=== PATIENT | female | born 1945 | race Caucasian/White ===

== ENCOUNTER 2018-04-24 20:06 | Emergency (ER) | payer MEDICARE ==
--- NOTE | 2018-04-24 20:37 | ED Physician Chart ---
ED Chief Complaint/HPI - Patient Information Date Seen:: 04/24/18 Time Seen:: 20:20 Chief Complaint:: cp History of Present Illness:: 72 yr old female with hx of htn with lt sided cp for 6 hours no trauma no dizzines or vomiting or fever or cough pain sharp mod to severe not assoc with sob but has lt hand pains no previous hx of same Allergies:: Allergies Allergy/AdvReac Type Severity Reaction Status Date / Time No Known Allergies Allergy Verified 04/24/18 20:19 Vitals:: Vital Signs - 8 hr 04/24/18 20:08 Temp 98.1 F HR 82 RR 18 BP 123/60 O2 Sat % 98 ED Review of Systems - Review of Systems General/Constitutional: No fever Skin: No skin lesions Head: No headache Eyes: No loss of vision ENT: No earache Cardio Vascular: Chest pain Pulmonary: No SOB, No cough GI: No vomiting G/U: No dysuria Musculoskeletal: No bone or joint pain Psychiatric: No prior psych history, No depression Hematopoietic: No bruising Allergic/Immuno: No urticaria Neurological: No syncope, No focal symptoms, No headache ED Past Medical History - Past Medical History Past Medical History: HTN Family History: None Social History: Non Smoker Surgical History: None Psychiatricy History: None Medication: Reviewed (takes baby aspirin losartan hctz```````) Family Medical History - Family Member Mother History Unknown: Yes Ethnicity: ED Physical Exam - Physical Examination Eyes: Lids, conjuctiva normal Skin: Nl inspection ENMT: External ears, nose nl Neck: Nontender Respiratory: Nl effort/Exclusion Other Respiratory comments:: tenderness to palpation lt chest wall Cardio Vascular: RRR, No murmur, gallop, rubs : No CVA tenderness Extremities: No tenderness or effusion Neuro/Psych: Normal motor strength Misc: Normal back ED Labs/Radiology/EKG Results - EKG Interpretations EKG Time:: 20:17 Rate & Rhythm: NSR @86 OLD AWMI ED Assessment - Assessment General Assessment: chest pain ED Septic Shock - . Is Septic Shock (SBP<90, OR Lactate>4 mmol\L) present?: No - <6hrs of presentation: Vital Signs: Vital Signs - 8 hr 04/24/18 20:08 Temp 98.1 F HR 82 RR 18 BP 123/60 O2 Sat % 98 ED Reassessment (Disposition) - Reassessment Reassessment Condition:: Improved - Diagnosis Diagnosis:: chest pain R/O CHEST WALL PAIN NL TROP BNP EKG OLD AWMI PT IMPROVED - Patient Disposition Discharge/Transfer:: Home Condition at Disposition:: Stable ED Discharge Plan - Patient Disposition Instructions: Chest Wall Pain, [id number] Additional Instructions: MAKE A FOLLOW UP WITH PRIMARY MEDICAL DOCTOR ROLAN, GO BACK TO EMERGENCY ROOM IF SYMPTOMS WORSEN.
[2018-04-24 20:59] LABS: URINE MICROSCOPIC INDICATED? YES; URINE SOURCE CLEAN C
[2018-04-24 21:00] LABS: % BASOPHILS 0.6 % (0.0-2.0); % EOSINOPHILS 0.1 % (0.0-5.0); % LYMPHOCYTES 24.6 % (20.0-50.0); % MONOCYTES 8.2 % (2.0-10.0); % NEUTROPHILS 66.5 % (40.0-80.0); BASOPHILE ABSOLUTE 0.1 Th/cumm (0-0.2); LYMPHOCYTE ABSOLUTE 2.1 Th/cmm (1.5-3.0); MEAN CELL VOLUME 88.7 fl (81-100); MEAN CORPUSCULAR HEMOGLOBIN 30.4 pg (27.0-31.0); MEAN CORPUSCULAR HGB CONC 34.3 pg (28.0-36.0); MEAN PLATELET VOLUME 7.9 fl; MONOCYTE ABSOLUTE 0.7 Th/cmm (0.3-1.0); NEUTROPHILE ABSOLUTE 5.5 Th/cmm (1.8-8.0); PLATELET COUNT 200 Th/cmm (150-400); RED BLOOD COUNT 3.94 Mil/cmm (3.80-5.20); RED CELL DISTRIBUTION WIDTH 11.9 % (11.5-20.0); WHITE BLOOD COUNT 8.4 Th/cmm (4.8-10.8)
[2018-04-24 21:00] LABS: URINE BILIRUBIN NEGATIVE (NEGATIVE); URINE BLOOD TRACE (NEGATIVE); URINE GLUCOSE (UA) NEGATIVE (NEGATIVE); URINE KETONE NEGATIVE (NEGATIVE); URINE LEUKOCYTE ESTERASE NEGATIVE (NEGATIVE); URINE NITRATE NEGATIVE (NEGATIVE); URINE PROTEIN NEGATIVE (NEGATIVE); URINE UROBILINOGEN 0.2 E.U./dL (0.2 - 1.0)
[2018-04-24 21:03] LABS: URINE CLARITY CLEAR (CLEAR); URINE COLOR YELLOW
[2018-04-24 21:04] LABS: URINE BACTERIA NONE SEEN /hpf (NONE SEEN); URINE EPITHELIAL CELLS NONE SEEN /lpf (FEW); URINE WBC NONE SEEN /hpf (0-5)
[2018-04-24] MEDS ORDERED: NITROGLYCERIN OINT 2% 1 INCH PACKET TP ONE (21:09)
[2018-04-24 21:14] LABS: ALB/GLOB RATIO 1.4 (1.0-1.8); ALBUMIN 3.9 gm/dL (3.7-5.3); ALKALINE PHOSPHATASE 95 U/L (34-104); BILIRUBIN,TOTAL 0.4 mg/dL (0.3-1.0); BUN - UREA NITROGEN 19 mg/dL (7-25); CALCIUM SERUM 9.5 mg/dL (8.6-10.3); CARBON DIOXIDE 26.1 mEq/L (21.0-31.0); CHLORIDE 103 mEq/L (98-107); CREATININE - SERUM 0.7 mg/dL (0.6-1.2); CREATININE KINASE 96 U/L (30-223); GLUCOSE 129 mg/dL (70-105); POTASSIUM SERUM 3.1 mEq/L (3.5-5.1); SGOT 21 U/L (13-39); SGPT/ALT 20 U/L (7-52); SODIUM SERUM 138 mEq/L (136-145); TOTAL PROTEIN,SERUM 6.7 gm/dL (6.0-8.3)
[2018-04-24] MEDS: NITROGLYCERIN OINT 2% 1 INCH PACKET TP ONE (21:20)
[2018-04-24] MEDS ORDERED: Potassium Chloride 20 mEq ER Tab PO ONE (21:52)
[2018-04-24] MEDS: Potassium Chloride 20 mEq ER Tab PO ONE (21:54)
--- NOTE | 2018-04-25 08:23 | Diagnostic Imaging Report ---
CHEST X-RAY: AP view INDICATION: Shortness of breath COMPARISON: None FINDINGS: Mild increased right basal lung markings are noted. There is no focal consolidation or pleural effusions . Mildly tortuous aorta is noted. Heart size is normal. Degenerative changes of the spine are noted. IMPRESSION: Mild increased right basal lung markings probably due to atelectatic changes. Faint infiltrate is less likely. No focal consolidation identified Mildly tortuous aorta.
== END 2018-04-24 22:35 | disposition home or self-care (01) ==
LOC: ER 20:06
DX: R07.89 Other chest pain (principal); I10 Essential (primary) hypertension
CPT/HCPCS: 36415-UA; 71045-TC; 80053-TC; 81001-TC; 82550-TC; 83880-TC; 84484-TC; 85025-TC; 93005

== ENCOUNTER 2019-04-11 19:36 | Emergency (ER) | payer MEDICARE ==
--- NOTE | 2019-04-11 19:50 | ED Physician Chart ---
ED Chief Complaint/HPI - Patient Information Date Seen:: 04/11/19 Time Seen:: 19:45 Chief Complaint:: Headache History of Present Illness:: 73 yo female had headache and dizziness for 1 month. The headache is located mostly in the occipital area radiating to the frontal area and left shoulder. Pt denied nausea or vomiting. Pt denied head trauma. Pt's BP was elevated at ER 188/76. Allergies:: Allergies Allergy/AdvReac Type Severity Reaction Status Date / Time No Known Allergies Allergy Verified 04/24/18 20:19 Vitals:: Vital Signs - 8 hr 04/11/19 19:39 Temp 98.5 F HR 76 RR 19 BP 188/76 O2 Sat % 98 ED Review of Systems - Review of Systems General/Constitutional: No fever, No chills Skin: No rash Head: Headache Eyes: No pain ENT: No nasal drainage Neck: Neck pain Cardio Vascular: No chest pain Pulmonary: No SOB GI: Pain Musculoskeletal: Bone or joint pain Neurological: No focal symptoms ED Past Medical History - Past Medical History Past Medical History: HTN, Other (Headache) Social History: Non Smoker, No Alcohol, No Drug Use Family Medical History - Family Member Mother History Unknown: Yes Ethnicity: ED Physical Exam - Physical Examination General/Constitutional: Awake, Alert Head: Atraumatic Other Head comments:: Bilateral greater occipital nerve territory tenderness Eyes: PERRL, EOMI Skin: No skin lesions ENMT: Nasal exam nl Neck: Nontender Respiratory: Nl effort/Exclusion, No Wheeze/Rhonchi/Rales Cardio Vascular: RRR, No murmur, gallop, rubs, NL S1 S2 GI: No tenderness/rebounding/guarding, Nondistended Extremities: normal strength in all extremities Neuro/Psych: No focal deficits ED Assessment - Assessment General Assessment: Headache Hypertension, uncontrolled Assessment/Comments:: Hydralazine 10 mg IV Toradol 30 mg IV Tylenol 650 mg po ED Septic Shock - . Is Septic Shock (SBP<90, OR Lactate>4 mmol\L) present?: No - <6hrs of presentation: Vital Signs: Vital Signs - 8 hr 04/11/19 19:39 Temp 98.5 F HR 76 RR 19 BP 188/76 O2 Sat % 98 ED Reassessment (Disposition) - Reassessment Reassessment:: After controlling BP to 144/57, in conjunction with toradol and tylenol, pt's headache subsided significantly. Reassessment Condition:: Improved - Aftercare/Follow up Instructions Notes:: D/c home F/u PCP for BP control Return to ER if symptoms worsen - Patient Disposition Discharge/Transfer:: Home
--- NOTE | 2019-04-12 08:53 | Diagnostic Imaging Report ---
CT scan of the brain without intravenous contrast HISTORY: Headache Total DLP equals 671 CTDI equals 39.5 Axial sections were obtained from the base of the skull to the vertex. There is prominence/enlargement of the ventricular system size. Associated enlargement of cerebral sulci and subarachnoid cisterns. Findings are consistent with changes of generalized cerebral atrophy. No acute parenchymal abnormalities. No acute cerebral hemorrhage. Hypodensity is seen within the supratentorial white matter regions without mass effect. The findings may be associated with chronic small vessel ischemic disease. No extra-axial masses or abnormal fluid collections. IMPRESSION: 1. No acute abnormalities 2. Cerebral atrophy 3. Supratentorial white matter changes that may reflect chronic small vessel ischemic disease
== END 2019-04-11 22:15 | disposition home or self-care (01) ==
LOC: ER 19:36
DX: I10 Essential (primary) hypertension (principal); R51 Headache
CPT/HCPCS: 99284; 96374; 93005; 70450; J0360; Z7610